=== PATIENT | male | born 1995 | race Caucasian/White ===

== ENCOUNTER 2017-04-26 13:38 | Emergency (ER) | payer OTHER ==
[~2017-04-26] VITALS: Ht 180.3 cm; Wt 71.5 kg
[2017-04-26 13:50] VITALS: BP 146/72; PULSE 114; RESP 16; TEMP 99.3; O2SAT 97
[2017-04-26] MEDS ORDERED: LIDOCAINE 1%/EPINEPHrine 1:100,000 SOLN 20 ML VIAL INFIL ONE (14:00)
[2017-04-26] MEDS ORDERED: LIDOCAINE 1%/EPINEPHrine 1:100,000 SOLN 20 ML VIAL ONE (14:01)
[2017-04-26] MEDS ORDERED: LAMO25TA PO (14:10)
[2017-04-26] MEDS ORDERED: CEPH-460 PO (14:27)
--- NOTE | 2017-04-26 14:27 | PD ---
HPI Chief Complaint: Head Injury Time Seen by Provider: 13:57 Travel History International Travel<30 days: No Contact w/Intl Traveler<30days: No Traveled to known affect area: No History of Present Illness HPI 21-year-old male complains of scalp laceration. Patient states that he fell last night and struck his head against a coffee table. Patient denies loss of consciousness. Patient complaint laceration to the top of the head. Patient denies any visual change. Patient states that he has mild aching pain to the neck area. Patient denies any chest pain or shortness of breath. Patient denies abdominal pain. Patient denies any nausea vomiting. Patient denies any focal weakness or numbness of extremity. Patient denies any memory problem. Patient is up-to-date with TD booster. PFSH Past Medical History Bipolar Disorder: Yes Diminished Hearing: No Immunizations Current: Yes Influenza Vaccination: No ?: Not Social History Alcohol Use: Yes ("SOCIALLY") Tobacco Use: Yes (chews tobacco 3 cans/day) Substance Use: No Allergies-Medications (Allergen,Severity, Reaction): Coded Allergies: No Known Allergies (Verified Adverse Reaction, Unknown, 04/26/17) Reported Meds & Prescriptions Reported Meds & Active Scripts Active Keflex (Cephalexin) 500 Mg Capsule 500 Mg PO TID Reported Lamotrigine 25 Mg Tab 25 Mg PO DAILY Review of Systems General / Constitutional: No: Fever Eyes: No: Visual changes HENT: No: Headaches Cardiovascular: No: Chest Pain or Discomfort Respiratory: No: Shortness of Breath Gastrointestinal: No: Abdominal Pain Genitourinary: No: Dysuria Musculoskeletal: No: Pain Skin: No Rash Neurologic: No: Weakness Psychiatric: No: Depression Endocrine: No: Polydipsia Hematologic/Lymphatic: No: Easy Bruising Physical Exam Narrative GENERAL: Well-nourished, well-developed patient. SKIN: Focused skin assessment warm/dry. HEAD: Normocephalic. Patient has 4 cm laceration on the scalp on top of the head. No active bleeding. EYES: No scleral icterus. No injection or drainage. Pupil 2 mm equal reactive. NECK: Supple, trachea midline. No JVD or lymphadenopathy. Mild tenderness on palpation paraspinal area cervical spine. No midline tenderness. CARDIOVASCULAR: Regular rate and rhythm without murmurs, gallops, or rubs. RESPIRATORY: Breath sounds equal bilaterally. No accessory muscle use. GASTROINTESTINAL: Abdomen soft, non-tender, nondistended. MUSCULOSKELETAL: No cyanosis, or edema. BACK: Nontender without obvious deformity. No CVA tenderness. Neurologic exam: Patient is awake alert oriented 3. No obvious focal neurological deficit. Data Data Last Documented VS Vital Signs Date Time Temp Pulse Resp B/P (MAP) Pulse Ox O2 Delivery O2 Flow Rate FiO2 04/26/17 13:50 99.3 114 16 146/72 (96) 97 Orders Orders Lidocai-Epi 1%-1:100,000 Inj (Xylocaine- (04/26/17 14:00) Lidocai-Epi 1%-1:100,000 Inj (Xylocaine- (04/26/17 14:01) Ed Discharge Order (04/26/17 14:27) [facility] Medical Decision Making Medical Screen Exam Complete: Yes Emergency Medical Condition: Yes Differential Diagnosis Differential diagnosis includes laceration, skull fracture, intracranial hemorrhage. Narrative Course 21-year-old male with scalp laceration. Procedures Procedure Narrative LACERATION LOCATION: Scalp LENGTH: 4 cm NUMBER OF STITCHES/ELEUTERIO: 6 REPAIR: The area of the laceration was prepped with Betadine and sterilely draped. The laceration was infiltrated with 1% lidocaine with epinephrine. The wound was copiously irrigated and explored without evidence of foreign body , tendon injury or neurovascular injury. The wound was closed using eleuterio. This was a single layer repair. A sterile dressing was applied. The patient was advised to keep the dressing clean and dry. Patient tolerated the procedure well. Diagnosis Primary Impression: Scalp laceration Qualified Codes: S01.01XA - Laceration without foreign body of scalp, initial encounter Patient Instructions: General Instructions Additional Instructions: Keflex as directed. Wound care daily. Staple removal in 10 days. Med/Other Pt SpecificInfo: Prescription(s) given Scripts Cephalexin (Keflex) 500 Mg Capsule 500 MG PO TID for Infection, #15 CAP 0 Refills Prov: Jeremy Hansen MD 04/26/17 Disposition: 01 DISCHARGE HOME Condition: Stable Jeremy Hansen MD Apr 26, 2017 14:27
== END 2017-04-26 15:04 | disposition home or self-care (01) ==
LOC: PHED 13:38
DX: S01.01XA Laceration without foreign body of scalp, initial encounter (principal); W01.190A Fall on same level from slipping, tripping and stumbling with subsequent striking against furniture, initial encounter; Y92.009 Unspecified place in unspecified non-institutional (private) residence as the place of occurrence of the external cause; Z72.0 Tobacco use; M54.2 Cervicalgia
CPT/HCPCS: 12002